=== PATIENT | male | born 1955 | race Two or more races ===

== ENCOUNTER → 2022-12-24 | Outpatient (CLI) | payer MEDICARE, OTHER ==
[2022-12-24 16:39] LABS: Basophils # (auto) 0.1 10 ^3/uL (0-0.2); Basophils % (auto) 0.9 % (0.0-2.0); Eosinophils # (auto) 0.1 10 ^3/uL (0-0.8); Eosinophils % (auto) 1.6 % (0.0-7.0); Hematocrit 44.7 % (41.0-53.0); Hemoglobin 14.9 g/dL (13.5-17.5); Lymphocytes # (auto) 1.6 10 ^3/uL (0.4-5.4); Mean Corpuscular Hemoglobin 27.8 pg (28.0-32.0); Mean Corpuscular Hgb Conc. 33.4 g/dL (32.0-36.0); Mean Corpuscular Volume 83.5 fL (80.0-100.0); Monocytes # (auto) 0.5 10 ^3/uL (0-1.3); Monocytes % (auto) 8.3 % (0.0-12.0); Neutrophils % (auto) 64.2 % (37.0-80.0); Nucleated Red Blood Cells % 0.1 %; Red Blood Cells 5.36 10^6/uL (4.5-5.90); Red Cell Distribution Width 14.7 % (11.8-14.3); White Blood Cell 6.2 10^3/uL (4.4-10.8)
[2022-12-24 17:34] LABS: Albumin 3.8 g/dL (3.4-5.0)
[2022-12-24 17:38] LABS: BUN/Creatinine Ratio 10.2 (10.0-20.0); Bilirubin, Total 0.6 mg/dL (0.2-1.0); Total Protein 7.5 g/dL (6.4-8.2)
== END | disposition home or self-care (01) ==
LOC: LAB 16:16
PROVIDERS: ATTEND Dermatology
DX: L40.0 Psoriasis vulgaris (principal)
CPT/HCPCS: 36415; 80053; 84702; 85025; 86480; 86704

== ENCOUNTER 2024-11-02 10:49 | Emergency (ER) | payer MEDICARE, OTHER ==
[~2024-11-02] VITALS: Ht 172.7 cm; Wt 91.0 kg
[2024-11-02 12:48] VITALS: BP 158/76; TEMP 99.1
[2024-11-02 13:18] LABS: Basophils # (auto) 0 10 ^3/uL (0-0.2); Basophils % (auto) 0.4 % (0.0-2.0); Eosinophils # (auto) 0.1 10 ^3/uL (0-0.8); Eosinophils % (auto) 1.2 % (0.0-7.0); Hematocrit 43.9 % (41.0-53.0); Hemoglobin 14.6 g/dL (13.5-17.5); Lymphocytes # (auto) 1.4 10 ^3/uL (0.4-5.4); Lymphocytes % (auto) 16.2 % (10.0-50.0); Mean Corpuscular Hemoglobin 30.1 pg (28.0-32.0); Mean Corpuscular Hgb Conc. 33.3 g/dL (32.0-36.0); Mean Corpuscular Volume 90.5 fL (80.0-100.0); Monocytes # (auto) 0.7 10 ^3/uL (0-1.3); Neutrophils # (auto) 6.5 10 ^3/uL (1.6-8.6); Neutrophils % (auto) 74.2 % (37.0-80.0); Platelet Count (auto) 228 10^3/uL (140-450); Red Blood Cells 4.85 10^6/uL (4.5-5.90); Red Cell Distribution Width 15.1 % (11.8-14.3); White Blood Cell 8.7 10^3/uL (4.4-10.8)
--- NOTE | 2024-11-02 13:20 | ED.PDOC ---
Eye-HPI HPI Comments 69 y/o M, presents to the ED for CC of sore-throat. Patient states he has been experiencing symptoms of sore-throat, earache, and difficulty swallowing x1week. Patient relays, that he was previously seen at urgent care for symptoms; was prescribed Zpak which provided no relief. Patient endorses, returning to urgent care today (11/02/24) for a reevaluation of symptoms and was relayed to the ED for a further evaluation of a possible paratonsillar abscess. Patient denies fever, chills, headache, oral discharge , or nausea. No other symptoms or modifying factors at this time. Denies drooling or stridor. Endorses pain with eating. Chief Complaint: Sore Throat Time Seen by MD: 12:45 Reviewed Notes: Nurses Notes, Medications, Allergies Allergies: Coded Allergies: NO KNOWN ALLERGIES (Unverified , 11/02/24) Information Source: Patient Mode of Arrival: Ambulatory Timing: Weeks Duration: Since onset Prehospital treatment: None Quality: Pain Lids: Normal Conjunctiva: Normal Cornea: Normal Pupils: Normal EOM: Normal Fundus: Normal Slit lamp exam: Normal Anterior chamber: Normal Mouth Location: Right (swollen bilateral tonsils, right larger than left) Mouth: Right (swollen bilateral tonsils, right larger than left) ENT Ear Exam: Normal Nose: Normal Sinuses: Normal Oropharynx: Normal Onset: Spontaneous Throat Exposed to: None Eye Context Recent: Recurrent sore throat History of: None Last Tetanus: Unknown Modifying factors: Nothing Associated signs and symptoms: Sore Throat, Ear Pain Past Medical History PAST MEDICAL HISTORY: Denies Surgical History: Denies all surgeries Family History Family History: Unknown Social History Smoker: Non-Smoker Alcohol: Denies ETOH Use Drugs: Denies Drug Use Lives In: Home Constitutional: denies: chills, diaphoresis, fatigue, fever, malaise, sweats, weakness, others EENTM: reports: eye pain, throat pain, throat swelling; denies: blurred vision, double vision, ear bleeding, ear discharge, ear drainage, ear pain, ear ringing, eye redness, hearing loss, mouth pain, mouth swelling, nasal discharge, nose bleeding, nose congestion, nose pain, photophobia, tearing, voice changes, others Respiratory: denies: cough, hemoptysis, orthopnea, SOB at rest, shortness of breath, SOB with excertion, stridor, wheezing, others Cardiovascular: denies: chest pain, dizzy spells, diaphoresis, Dyspnea on exertion, edema, irregular heart beat, left arm pain, lightheadedness, palpitations, PND, syncope, others Gastrointestinal: denies: abdomen distended, abdominal pain, blood streaked bowels, constipated, diarrhea, dysphagia, difficulty swallowing, hematemesis, melena, nausea, poor appetite, poor fluid intake, rectal bleeding, rectal pain, vomiting, others Genitourinary: denies: burning, dysuria, flank pain, frequency, hematuria, incontinence, penile discharge, penile sore, pain, testicle pain, testicle swelling, urgency, others Neurological: denies: dizziness, fainting, headache, left sided numbness, left sided weakness, numbness, paresthesia, pre-existing deficit, right sided numbness, right sided weakness, seizure, speech problems, tingling, tremors, weakness, others Musculoskeletal: denies: back pain, gout, joint pain, joint swelling, muscle pa in, muscle stiffness, neck pain, others Integumetry: denies: bruises, change in color, change in hair/nails, dryness, laceration, lesions, lumps, rash, wounds, others Allergic/Immunocompromised: denies: Difficulty Healing, Frequent Infections, Hives, Itching, others Hematologic/Lymphatic: denies: anemia, blood clots, easy bleeding, easy bruising, swollen glands, others Endocrine: denies: excessive hunger, excessive sweating, excessive thirst, excessive urination, flushing, intolerance to cold, intolerance to heat, unexplained weight gain, unexplained weight loss, others Psychiatric: denies: anxiety, bipolar disorder, depression, hopeless, panic disorder, schizophrenia, sleepless, suicidal, others All Other Systems: Reviewed and Negative Physical Exam General Appearance: No Apparent Distress, Normal HEENT: Other (swollen bilateral tonsils, right larger than left) Neck: Other (swollen lyphm nodes) Respiratory: Chest Non-Tender, Lungs Clear, No Accessory Muscle Use, No Respiratory Distress, Normal Breath Sounds Cardiovascular: No Edema, No Murmur, No Gallop, Normal Peripheral Pulses, Regular Rate/Rhythm Breast Exam: Deferred Gastrointestinal: Non Tender, Soft Genitalia: Deferred Pelvic: Deferred Rectal: Deferred Extremities: Non-tender, No pedal edema Musculoskeletal : Apperance: Normal Neurologic: Alert, grease maker head II-XII nml as Tested, No Motor Deficits, Normal Affect, Normal Mood, No Sensory Deficits Cerebellar Function: Normal Reflexes: Normal Skin: Dry, Normal Color, Warm Lymphatic: No Adenopathy Was a procedure done? Was a procedure done?: No EENT DIFF Eye: N/A Mouth: Esophageal candidiasis, Herpangina, Herpes Simplex, Immunodeficiency Sore Throat: Peritonsillar Abscess, Peritonsillar Cellulitis, Pharyngitis, Viral Pharyngitis, URI X-Ray, Labs, Meds, VS Vital Signs Date Time Temp Pulse Resp B/P (MAP) Pulse Ox O2 Delivery O2 Flow Rate FiO2 11/02/24 14:04 74 20 97 Room Air* 0 21 11/02/24 12:48 64 18 95 Room Air 11/02/24 12:48 99.1 64 18 158/76 (103) 95 99.1 11/02/24 11:30 98.9 64 19 157/71 (99) 96 Lab Test 11/02/24 13:09 11/02/24 13:02 Range/Units Influenza Type A Antigen Negative Negative Influenza Type B Antigen Negative Negative SARS-CoV-2 Antigen (Rapid) Negative NEGATIVE Group A Streptococcus Rapid Negative White Blood Count 8.7 4.4-10.8 10^3/uL Red Blood Count 4.85 4.5-5.90 10^6/uL Hemoglobin 14.6 13.5-17.5 g/dL Hematocrit 43.9 41.0-53.0 % Mean Corpuscular Volume 90.5 80.0-100.0 fL Mean Corpuscular Hemoglobin 30.1 28.0-32.0 pg Mean Corpuscular Hemoglobin Concent 33.3 32.0-36.0 g/dL Red Cell Distribution Width 15.1 H 11.8-14.3 % Platelet Count 228 140-450 10^3/uL Mean Platelet Volume 7.2 6.9-10.8 fL Neutrophils (%) (Auto) 74.2 37.0-80.0 % Lymphocytes (%) (Auto) 16.2 10.0-50.0 % Monocytes (%) (Auto) 8.0 0.0-12.0 % Eosinophils (%) (Auto) 1.2 0.0-7.0 % Basophils (%) (Auto) 0.4 0.0-2.0 % Neutrophils # (Auto) 6.5 1.6-8.6 10 ^3/uL Lymphocytes # (Auto) 1.4 0.4-5.4 10 ^3/uL Monocytes # (Auto) 0.7 0-1.3 10 ^3/uL Eosinophils # (Auto) 0.1 0-0.8 10 ^3/uL Basophils # (Auto) 0 0-0.2 10 ^3/uL Nucleated Red Blood Cells 0.0 % Sodium Level 137 136-145 mmol/L Potassium Level 3.8 3.5-5.1 mmol/L Chloride Level 103 98-107 mmol/L Carbon Dioxide Level 20 20-31 mmol/L Anion Gap 14 5-15 Blood Urea Nitrogen 11 9-23 mg/dL Creatinine 1.34 H 0.700-1.30 mg/dL Glomerular Filtration Rate Calc 58 >90 mL/min BUN/Creatinine Ratio 8.2 L 10.0-20.0 Serum Glucose 93 74-106 mg/dL Lactic Acid Level 1.2 0.4-2.0 mmol/L Calcium Level 10.5 H 8.7-10.4 mg/dL Total Bilirubin 0.7 0.2-1.0 mg/dL Aspartate Amino Transferase (AST) 37 13-40 U/L Alanine Aminotransferase (ALT) 41 H 7-40 U/L Alkaline Phosphatase 85 46-116 U/L Total Protein 8.2 5.7-8.2 g/dL Albumin 4.8 3.2-4.8 g/dL [place] [id number] Ph: [phone] DIAGNOSTIC IMAGING Diagnostic Imaging Report : [id number] Signed PATIENT: SRIRAM TRIPLETT ACCT: [id number] UNIT: [id number] : 1955 LOC: ER ROOM / BED: / AGE / SEX: 69 / M ADM STATUS: REG ER SERVICE [id number] ORDERING PHYSICIAN: GER CLEMONS MD PROCEDURE(s): NKICT - NECK WITHOUT CONTRAST REASON: ? PERITONSILLAR ABSCESS ORDER NUMBER(s): [id number], ACCESSION NUMBER(s): [id number] EXAM: CT NECK WITHOUT CONTRAST INDICATION: PERITONSILLAR ABSCESS EXAM DATE: 11/02/2024 01:58 PM COMPARISON: None TECHNIQUE: Multiple axial CT images of the neck were obtained using bone algorithm. Axial and coronal reformatting was done. Bone and soft tissue windows were reviewed. Radiation Dose Information: CT Dose: CTDI volume is 16.94 mGy. Dose-length product is 500.06 mGy*cm Findings: Nasopharynx, oropharynx, hypopharynx, and larynx are normal in caliber without evidence of focal mass. Asymmetric palatine tonsils, [id number]-left. Evaluation is limited given streak artifact from dental hardware and lack of IV contrast. Left tonsilloliths. Parotid, submandibular, and sublingual glands are within normal limits. The tongue is unremarkable. Large right thyroid nodule measuring 5.0 x 4.1 cm. No evidence of superior mediastinal lymphadenopathy. Cervical soft tissues within normal limits with no evidence of significant cervical lymphadenopathy. Musculoskeletal structures grossly unremarkable with no evidence of acute osseous abnormality. Impression: 1. Asymmetric palatine tonsils, [id number]-left. Evaluation is limited given streak artifact from dental hardware and lack of IV contrast. 2. Large right thyroid nodule measuring 5.0 x 4.1 cm. Recommend a nonemergent, outpatient thyroid ultrasound for further evaluation. ATED BY: MALIHA TIRADO DO DICTATED DATE/TIME: 11/02/24 1452 SIGNED BY: MALIHA TIRADO DO SIGNED DATE/TIME: 11/02/24 1452 CC: X-Ray, Labs, Meds, VS Comment This 69-year-old male presents secondary to increasing sore throat and difficulty swallowing. He was on his currently today where he was told he may have peritonsillar abscess. During exam, he had enlarged tonsils. CT shows an enlarged left tonsil. My review of the imaging shows a 5 mm wide airway at its narrowest. The patient was given Zosyn and Medrol in the ED. In the images I do not see a fluid fill sac that I would be able to nadine. The patient will be transferred to [facility] under the care of Dr. Lin Time of 1ST Reevaluation: 13:25 Reevaluation 1ST: Unchanged Patient Education/Counseling: Diagnosis, Treatment Family Education/Counseling: No Family Present Departure 1 Departure Time of Disposition: 17:43 Impression: Primary Impression: Acute bacterial tonsillitis Additional Impressions: Sore throat Airway compromise Airway clearance impairment Disposition: 51 HOSPICE/MEDICAL FACILITY Condition: Guarded Critical Care Note Critical Care Time?: Yes (45 min-critical care time only) Critical care comment: Due to a high probability of clinically significant, life threatening deterioration, the patient required my highest level of preparedness to intervene emergently and I personally spent this critical care time directly and personally managing the patient. This critical care time included obtaining a history; examining the patient; pulse oximetry; ordering and review of studies; arranging urgent treatment with development of a management plan; evaluation of patient's response to treatment; frequent reassessment; and, discussions with other providers. This critical care time was performed to assess and manage the high probability of imminent, life-threatening deterioration that could result in multi-organ failure. It was exclusive of separately billable procedures and treating other patients and teaching time. Stability Stability form required: No Heart Score Heart Score: Heart Score Response (Comments) Value History N/A 0 EKG N/A 0 Age N/A 0 Risk Factors N/A 0 Troponin N/A 0 Total 0 I personally scribed for GER CLEMONS MD ([email or web address]) on 11/02/24 at 13:20. Electronically submitted by Stacey Phillips ([email or web address]). I personally scribed for GER CLEMONS MD ([email or web address]) on 11/02/24 at 15:08. Electronically submitted by Stacey Phillips ([email or web address]). I personally scribed for GER CLEMONS MD ([email or web address]) on 11/02/24 at 15:09. Electronically submitted by Stacey Phillips ([email or web address]). GER CLEMONS MD Nov 02, 2024 13:20
[2024-11-02 13:31] LABS: Alkaline Phosphatase 85 U/L (46-116); Anion Gap 14 (5-15); Aspartate Aminotransferase 37 U/L (13-40); BUN/Creatinine Ratio 8.2 (10.0-20.0); Bilirubin, Total 0.7 mg/dL (0.2-1.0); Blood Urea Nitrogen 11 mg/dL (9-23); Carbon Dioxide 20 mmol/L (20-31); Chloride 103 mmol/L (98-107); Glucose 93 mg/dL (74-106); Potassium 3.8 mmol/L (3.5-5.1); Sodium 137 mmol/L (136-145); Total Protein 8.2 g/dL (5.7-8.2)
[2024-11-02 13:38] LABS: Alanine Aminotransferase 41 U/L (7-40); Albumin 4.8 g/dL (3.2-4.8); Calcium 10.5 mg/dL (8.7-10.4)
[2024-11-02 14:04] VITALS: PULSE 74; RESP 20; O2SAT 97
[2024-11-02 14:13] LABS: COVID19 ANTIGEN SOFIA FIA NEGATIVE (NEGATIVE); Rapid Influenza A Negative (Negative); Rapid Influenza B Negative (Negative)
--- NOTE | 2024-11-02 14:54 | DVH ---
EXAM: CT NECK WITHOUT CONTRAST INDICATION: PERITONSILLAR ABSCESS EXAM DATE: 11/02/2024 01:58 PM COMPARISON: None TECHNIQUE: Multiple axial CT images of the neck were obtained using bone algorithm. Axial and coronal reformatting was done. Bone and soft tissue windows were reviewed. Radiation Dose Information: CT Dose: CTDI volume is 16.94 mGy. Dose-length product is 500.06 mGy*cm Findings: Nasopharynx, oropharynx, hypopharynx, and larynx are normal in caliber without evidence of focal mass . Asymmetric palatine tonsils, [id number]-left. Evaluation is limited given streak artifact fr om dental hardware and lack of IV contrast. Left tonsilloliths. Parotid, submandibular, and sublingual glands are within normal limits. The tongue is unremarkable. Large right thyroid nodule measuring 5.0 x 4.1 cm. No evidence of superior mediastinal lymphadenopath y. Cervical soft tissues within normal limits with no evidence of significant cervical lymphadenopathy. Musculoskeletal structures grossly unremarkable with no evidence of acute osseous abnormality. Impression: 1. Asymmetric palatine tonsils, [id number]-left. Evaluation is limited given streak artifact from dental hardware and lack of IV contrast. 2. Large right thyroid nodule measuring 5.0 x 4.1 cm. Recommend a nonemergent, outpatient thyroid ult rasound for further evaluation.
[2024-11-02 15:08] LABS: Rapid Strep A Screen-Throat Negative
[2024-11-02] MEDS ORDERED: methylPREDNISolone SOD SUCC 500 MG in SODIUM CHL 0.9% 100 ML IV ONE (16:45)
[2024-11-02] MEDS: PIPERACILLIN-TAZOB 3.375GM 100 ML IV ONE (17:58)
== END 2024-11-02 19:12 | disposition hospice, inpatient (51) ==
LOC: ER 10:49
DX: J03.90 Acute tonsillitis, unspecified (principal); Z20.822 Contact with and (suspected) exposure to COVID-19
CPT/HCPCS: 36415; 70490; 80053; 83605; 85025; 87040; 87426; 87804; 87880; 96365; 99285; J2543; 87070